=== PATIENT | male | born 2000 | race Caucasian/White ===

== ENCOUNTER 2022-09-20 03:14 | Inpatient (IN) | payer OTHER, SELFPAY ==
[2022-09-20] VITALS (27 sets, daily range): BP systolic 102–136; BP diastolic 40–69; PULSE 68–125; RESP 10–24; TEMP 36.1–37; O2SAT 93–100; BMI 31.0; BMI 31.4
--- NOTE | 2022-09-20 03:24 | EDS_ITS ---
HPI HPI - GI History of Present Illness Chief Complaint: Nausea/Vomiting Informant: patient and spouse/S.O. Abdominal Pain/Flank Pain Onset: Today and Yesterday Context: Gradual Onset Timing: Continuous Quality: Cramping Location: Diffuse Current Severity: Mild Maximum Severity: Mild Worsened by: Nothing Relieved by: Nothing Nausea/Vomiting/Emesis GI Symptom: Positive for Nausea and Vomiting Onset: Today and Yesterday Quality: Negative for Blood streaks, Coffee ground or Hematemesis Severity: Moderate Diarrhea/Melena/Hematochezia GI Symptom: Negative for Diarrhea, Melena or Hematochezia Associated Symptoms Associated Symptoms: Negative for Dysuria, Frequency, Hematuria or Urgency Narrative Narrative: 22-year-old male history of type 1 diabetes that was diagnosed 7 years ago. Last night around 6 PM he started having nausea vomiting abdominal cramping. No diarrhea no dysuria. Unsure of his latest blood sugar because his machine is currently not working. Denies fever. Prior similar symptoms: Yes Recent Illness/Hospitalization: No PFSH PFSH Medical History (Updated 09/20/22 @ 06:[address] Abdi Vera MD) Diabetes type I Hyperlipemia Obesity Home Medications atorvastatin 40 mg tablet 40 mg PO DAILY 09/20/22 [History Last Taken Unknown] insulin aspart U-100 100 unit/mL subcutaneous solution (Novolog U-100 Insulin aspart) 09/20/22 [History Last Taken Unknown] Allergy/AdvReac Type Severity Reaction Status Date / Time No Known Allergies Allergy Verified 09/20/22 03:18 Family History (Updated 09/20/22 @ 05:[address] Kristy Hemphill MD) Grandfather Heart disease Maternal GF Father Diabetes Hyperlipidemia Other Hypertension Surgical History (Updated 09/20/22 @ 05:[address] Kristy Hemphill MD) H/O wisdom tooth extraction History of ankle surgery Social History (Updated 09/20/22 @ 05:[address] Kristy Hemphill MD) household members: spouse Smoking Status: Never smoker alcohol intake: never substance use type: does not use ROS ROS ED ROS Narrative Nausea and vomiting care abdominal cramping. Review of Systems ROS Unobtainable: Denies due to encephalopathy Constitutional Constitutional ED: Denies chills or fever(s) ENT ENT ED: Denies ear pain Cardiovascular Cardiovascular: Denies chest pain Respiratory/Chest Respiratory/Chest: Denies cough Gastrointestinal Gastrointestinal: Reports abdominal pain, nausea and vomiting; Denies constipation, diarrhea or melena Genitourinary Genitourinary ED: Denies dysuria or hematuria Musculoskeletal Musculoskeletal: Denies arthralgias Integumentary Denies abscess Neurologic Neurologic: Denies headache(s) Psychiatric Psychiatric: Denies anxiety Endocrine Endocrinology: Denies polydipsia Hematologic/Lymphatic Hematologic/Lymphatic: Denies easy bleeding Allergic/Immunologic Allergic/Immunologic ED: Denies mouth swelling or tongue swelling EXAM Physical Exam Narrative Exam Narrative: While caring 22-year-old male. Vital signs stable afebrile. He does not look septic or toxic. He does look dehydrated. H EENT exam unremarkable he saps dry mucous members. Neck nontender no lymphadenopathy. Lungs clear to auscultation bilaterally. Heart regular rhythm rate about 110 no murmur. Abdomen soft nondistended normal bowel sounds no peritoneal signs. No localizing tenderness. No hernia or mass. No distention. Moving all 4 extremities. 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 Normal dorsi plantarflexion. No edema. Nontender. Back nontender. Neurologically he is awake and alert with no focal motor deficits. Const Vital Signs: 09/20/22 03:17 09/20/22 05:48 Temperature 97.5 F L 97 F L Temperature Source Oral Temporal Pulse Rate 108 H 125 H Respiratory Rate 18 24 H Blood Pressure 136/66 H 116/53 L Blood Pressure Mean 89 74 Pulse Ox 99 100 Oxygen Delivery Method Room Air Room Air Positive well nourished and well developed; Negative for obese, cachectic, contractures or unkempt General Appearance ED: well developed and NAD; Negative for unkempt, cachectic, contractures or pallor Nutritional Appearance: Negative for cachectic or obese HEENT Reports dry mucous membranes; Denies moist mucous membranes normocephalic and atraumatic; Negative for trauma or tenderness Mouth ED: Yes dry mucous membranes Mouth: dry mucous membranes Eyes PERRL and EOMs intact bilaterally General Eye ED: Negative for pale conjunctiva or scleral icterus Neck no lymphadenopathy, supple and no JVD General: Negative for tenderness Carotids: Negative for other Lymph Lymphatic: Negative for other Resp normal respiratory effort and clear to auscultation bilaterally Effort and Inspection: Negative for respiratory distress Auscultation: Negative for rales, rhonchi or wheezes Cardio regular rhythm, S1 normal heart sound, S2 normal heart sound and no murmurs; Negative for regular rate Rate: tachycardic Rhythm: Negative for abnormal rhythm GI non-tender, non-distended and no masses Inspection: Negative for abdominal distention Auscultation: normoactive bowel sounds Palpation: soft; Negative for tender, guarding, rigid, hepatomegaly, splenomegaly, hernia, mass, pulsatile mass or rebound tenderness present Back/Spine no CVA tenderness General Back: Negative for CVA tenderness Cervical Spine: Negative for cervical spine tenderness Thoracic Spine / Upper Back: Negative for thoracic spinal tenderness Lumbar Spine / Lower Back: Negative for lumbar spinal tenderness Extremity full ROM General Extremety ED: Negative for edema or tenderness General Extremity: Negative for edema Neuro CN's II-XII intact bilaterally and moves all extremities Sensorium / Orientation: alert, oriented to person, oriented to place and oriented to time; Negative for orientation impaired, confused, lethargic or stuporous Motor Exam: strength 5/5 throughout Psych mental status grossly normal and thought process normal Appearance: Negative for unkempt Attitude: No agitated Mood & Affect: Negative for depressed, anxious or tearful Skin no wounds General Skin Exam: Negative for jaundice or pallor Lesions: no lesions Rashes: no rashes Trauma: Negative for abrasion Nails: Negative for discolored MDM MDM MDM Narrative Medical decision making narrative: 22-year-old diabetic male with nausea and vomiting. Clinically suspect viral syndrome. He is a type I diabetic we will check screening labs. He will be treated with IV fluids times a liter IV Zofran for nausea and a p.o. fluid challenge and reassess. Repeat exam patient is doing well is received a liter normal saline. Due to his elevated white count abdominal discomfort he will obtain abdominal CT of the abdomen and pelvis with IV contrast. He does have small acetone which could be consistent with early DKA with his anion gap and blood sugar 445. He will be started on insulin drip through the DKA order set. Repeat exam patient doing well at 5:18 AM. He will be started on insulin drip. He is already had 2 L normal saline clinically is looking improved. They are taking him over for CAT scan. I will speak to the hospitalist about admission. Radiologist called me about the CAT scan concern that this could be an early appendicitis. On repeat exam the patient is tender in the right lower quadrant but is also tender no other areas of his abdomen is not significantly worse. I discussed his case with the general surgeon on-call who is currently in the OR and will be up to evaluate the patient soon as possible. Patient be started on IV Zosyn. His repeat chemistry came back with a potassium of 6.0 however his blood sugar is slowly improving at 410 and his anion gap is improving at 16. The elevated potassium may be secondary to other factors because he is already received 2+ liters of normal saline and is on insulin drip. I expect his potassium would be going down and not up. History & Record Review Discussion w/independent historian: Patient and Significant other Additional record(s) reviewed:: No prior records Lab Data Attestation: I reviewed the patient's lab results. Lab results narrative: CBC shows an elevated white count of 20,800. H&H of 15 and 48. Platelets of 330. Electrolytes show sodium 134. Gap of 19. BUN and creatinine of 23 and 1.4 consistent with dehydration. Glucose is elevated 445. Liver enzymes are unremarkable. Given his elevated blood sugar and anion gap and serum ketones will be obtained. Serum ketones were positive. CAT scan abdomen pelvis with IV contrast is concerning for possible appendicitis. There is no perforation or abscess. I did discuss this with the radiologist. General surgery Dr. Atul Brown will be consulted. Labs: Laboratory Results - last 24 hr 09/20/22 09/20/22 09/20/22 03:20 04:31 05:44 WBC 20.8 H RBC 5.35 Hgb 15.8 Hct 48.1 MCV 89.9 MCH 29.5 MCHC 32.8 RDW Std Deviation 38.2 RDW Coeff of Gautam 11.8 Plt Count 330 MPV 10.0 Immature Gran % (Auto) 0.900 Neut % (Auto) 88.6 H Lymph % (Auto) 6.6 L [place] % (Auto) 3.5 Eos % (Auto) 0.0 Baso % (Auto) 0.4 Absolute Neuts (auto) 18.5 H Absolute Lymphs (auto) 1.38 Nucleated RBC % 0 Sodium 134 L 133 L Potassium 4.7 6.0 H* Chloride 100 104 Carbon Dioxide 15.0 L 13.0 L Anion Gap 19 H 16 H BUN 23 H 23 H Creatinine 1.44 H 1.26 Estim Creat Clear Calc 86.82 99.22 Est GFR (MDRD) Af Amer 77 90 Est GFR (MDRD) Non-Af 64 75 BUN/Creatinine Ratio 16.0 18.3 Glucose 445 H 410 H Calcium 9.6 8.6 Total Bilirubin 1.20 H AST 23 ALT 30 Alkaline Phosphatase 111 Total Protein 8.1 Albumin 4.6 Globulin 3.5 Albumin/Globulin Ratio 1.3 Acetone Level SMALL H POC Glucose 415 H Radiography Diagnostic Testing: Clinical Impression(s) from Imaging Studies Abdomen/Pelvis CT 09/20/22 05:10 IMPRESSION: 1. Findings suspicious for acute appendicitis. No evidence for appendiceal rupture. 2. Fatty liver. Electronically Signed: Beau Young MD at 6:03 EDT , Rhythm Strip Rhythm Strip: Sinus Tach Rate: 109 Ectopy: None EKG Initial EKG: Attestation: I personally reviewed and interpreted this EKG as follows: Interpretation: No Acute Injury Pattern and Sinus Tachycardia Comments: Sinus tachycardia rate of 109 no acute signs of GA or ischemia. EKG was done due to DKA protocol. Prior EKG tracings: not available for review Prior: No Prior Critical Care Time Critical Care Time: Yes Critical care time (excluding procedures): 30-74 minutes, Including time spent:, Discussing w/Patient &/or Family/Research Interviewer, Discussing w/Consultants, Arranging Admission or Transfer, Performing Direct Patient Care at Bedside and - (31 min) Discharge Plan Dx/Rx/DC Orders Clinical Impression: Acute dehydration, DKA (diabetic ketoacidosis), Leukocytosis, Nausea & vomiting, Abdominal pain, Appendicitis Disposition Disposition: Acute Care [facility]
[2022-09-20] MEDS: 0.9% Normal Saline 1,000 ML 1000 ML IV (03:25)
[2022-09-20 03:33] LABS: Absolute Lymphocyte Count 1.38 X10^3/uL (0.83-4.51); Absolute Neutrophil Count 18.5 X10^3/uL (2.0-7.7); Basophil# 0.08 X10^3/uL; Basophil% 0.4 % (0-1); Hematocrit 48.1 % (40-54); Hemoglobin 15.8 g/dL (13.0-16.5); Lymphocyte # 1.38 X10^3/ul (0.83-4.51); Lymphocyte % 6.6 % (19-41); Mean Corp Hgb Conc 32.8 g/dL (32-36); Mean Corpuscular Hgb 29.5 pg (27.0-32.0); Mean Corpuscular Volume 89.9 fL (80-94); Monocyte# 0.73 X10^3/uL; Monocyte% 3.5 % (0-10); NRBC Flagged by Analyzer 0 % (0-5); Neutrophil # 18.46 X10^3/uL (2.7-7.7); Neutrophil % 88.6 % (47-70); Platelet Count 330 K/mm3 (150-450); RBC Distribution Width CV 11.8 % (11.6-14.6); RBC Distribution Width SD 38.2 fl (35.1-43.9); Red Blood Count 5.35 M/mm3 (4.6-6.2); White Blood Count 20.8 K/mm3 (4.4-11.0)
[2022-09-20] MEDS: Ondansetron 4 MG/2 ML Vial IV ×3 (03:34→18:05)
[2022-09-20 04:13] LABS: ALB/GLOB Ratio 1.3 RATIO (0.9-2.4); AST(SGOT) 23 U/L (15-37); Alanine Aminotransfer ALT/SGPT 30 U/L (16-61); Albumin, Serum 4.6 g/dL (3.2-5.0); Alkaline Phosphatase 111 U/L (45-117); Anion Gap 19 (5-15); BUN 23 mg/dL (7-18); Calcium,Total 9.6 mg/dL (8.5-10.1); Chloride 100 mmol/L (98-107); Creatinine, Serum 1.44 mg/dL (0.70-1.30); EST Glomerular Filtration Rate 64 mL/min (>60); Est Glom Filt Rate - Afr Amer 77 mL/min (>60); Estimated Creatinine Clearance 86.82 ml/min; Globulin 3.5 g/dL (2.2-4.2); Glucose 445 mg/dL (74-106); Potassium 4.7 mmol/L (3.5-5.1); Protein, Total 8.1 g/dL (6.4-8.2); Sodium Level 134 mmol/L (136-145)
[2022-09-20] MEDS: Ketorolac 30 MG/ML Syringe IV (04:39)
[2022-09-20] MEDS: 0.9% Normal Saline 1,000 ML 999 ML IV ×2 (04:39→05:57)
--- NOTE | 2022-09-20 05:10 | CT_ITS ---
We are attempting to reach an attending provider to discuss findings. An addendum with communication details will be sent when the communication is complete. EXAM: CT ABDOMEN AND PELVIS WITH INTRAVENOUS CONTRAST CLINICAL INDICATION: abd pain abd pain TECHNIQUE: Helically acquired images were obtained of the abdomen and pelvis with intravenous contrast. This CT exam was performed using one or more of the following dose reduction techniques: automated exposure control, adjustment of the mA and/or kV according to patient size, and/or use of iterative reconstruction technique. CONTRAST: IV 100mL Isovue-370 RADIATION DOSE: CTDIvol = 12.49 mGy, DLP = 1044.81 mGy-cm COMPARISON: No relevant prior studies available. FINDINGS: LOWER THORAX: Unremarkable. Lung bases are clear. No cardiomegaly. No significant pericardial effusion. ABDOMEN: LIVER: There is decreased attenuation of liver consistent with fatty infiltration. GALLBLADDER AND BILE DUCTS: Unremarkable. No calcified gallstones. No gallbladder distention or wall edema. No intra- or extrahepatic biliary ductal dilation. PANCREAS: Unremarkable. No focal cystic or solid mass. SPLEEN: Unremarkable. Normal size without focal cystic or solid mass. ADRENALS: Unremarkable. No nodules. KIDNEYS AND URETERS: Unremarkable. Normal renal size and position. No hydronephrosis. STOMACH AND BOWEL: Unremarkable. No stomach or bowel distention. No focal inflammatory change. PELVIS: APPENDIX: The appendix is seen on axial images 77-83. There is moderately prominent in size with diameter of 9 mm. There is an appendicolith in the tip of the appendix. There is periappendiceal fat infiltration and findings are thought to be highly suspicious for acute appendicitis. BLADDER: Unremarkable. REPRODUCTIVE: Unremarkable as visualized. No mass. ABDOMEN and PELVIS: INTRAPERITONEAL SPACE: Unremarkable. No ascites or other fluid collection. No free air. BONES/JOINTS: There are multilevel degenerative changes in the lumbar spine. No suspicious lytic or blastic abnormality. SOFT TISSUES: Unremarkable. No discrete abdominal or pelvic wall hernia. VASCULATURE: Unremarkable. Abdominal aorta is non-dilated. LYMPH NODES: Unremarkable. No enlarged lymph nodes. CT/Abdomen/Pelvis W IV Cont ONLY IMPRESSION: 1. Findings suspicious for acute appendicitis. No evidence for appendiceal rupture. 2. Fatty liver. Electronically Signed: Beau Young MD at 6:03 EDT ,
--- NOTE | 2022-09-20 05:12 | EKG12_ITS ---
Test Reason : NAUSEA Blood Pressure : / mmHG Vent. Rate : 109 BPM Atrial Rate : 109 BPM P-R Int : 150 ms QRS Dur : 098 ms QT Int : 364 ms P-R-T Axes : 068 097 054 degrees QTc Int : 490 ms Sinus tachycardia Rightward axis Borderline ECG Confirmed by VICENTE OROZCO, LIANE ([id number]), senior technical editor HARI KANG ([id number]) on 09/20/2022 10:37:58 AM Referred By: Confirmed By:LIANE ZHANG MD
--- NOTE | 2022-09-20 05:45 | HP.PCM.HOS_ITS ---
HPI - General General Date of Admission: 09/20/22 Date of Service: 09/20/22 Chief Complaint: Abdominal cramping, N/V HPI Narrative The patient is a 22 y/o M w/ PMHx: Obesity, HLD, IDDM with insulin pump following with an registered radiographer at [place] who presents to the [facility] ED on 09/20/22 with history of onset nausea and emesis with diffuse associated abdominal cramping starting the day prior at approximately 6 PM with unclear blood sugars as patient reports his machine at home is not been working with no associated fevers or chills but ongoing persistent symptoms prompting eventual ED evaluation. 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 His is present in the emergency room and she denies being ill as of yet. Patient does state he vomited nearly 12 times prior to presentation. He does note that his muscles are sore following all his bouts of emesis. Work-up in the ED included T97.5, heart rate 108, BP 136/66, respiratory rate 18, 99% on room air, CBC with WBC 20.8, hemoglobin 15.8, platelet 330 with left shift, CMP with sodium 134,, dioxide 15, anion gap 15, BUN/creatinine 23/1.44, glucose 445, T. bili 1.20 otherwise hepatic profile unremarkable, acetone small. In the ED patient ministered normal saline 2 L bolus as well as Zofran 4 mg IV x1 and Toradol [address] A/P with IV contrast ordered per ED physician and pending upon re quested evaluation of patient for admission. [facility] Medical History (Updated 09/20/22 @ 05:[address] Kristy Hemphill MD) Diabetes type I Hyperlipemia Obesity Home Medications atorvastatin 40 mg tablet 40 mg PO DAILY 09/20/22 [History Last Taken Unknown] insulin aspart U-100 100 unit/mL subcutaneous solution (Novolog U-100 Insulin aspart) 09/20/22 [History Last Taken Unknown] Allergy/AdvReac Type Severity Reaction Status Date / Time No Known Allergies Allergy Verified 09/20/22 03:18 Family History (Updated 09/20/22 @ 05:[address] Kristy Hemphill MD) Grandfather Heart disease Maternal GF Father Diabetes Hyperlipidemia Other Hypertension Surgical History (Updated 06/29/23 @ 05:[address] Kristy Hemphill MD) H/O wisdom tooth extraction History of ankle surgery Social History (Updated 09/20/22 @ 05:[address] Kristy Hemphill MD) household members: spouse Smoking Status: Never smoker alcohol intake: never substance use type: does not use ROS ROS Narrative Admission Review of Systems: CONSTITUTIONAL: No weight loss, fever, chills, + weakness or fatigue. HEENT: Eyes: No visual loss, blurred vision, double vision or yellow sclerae. Ears, Nose, Throat: No hearing loss, sneezing, congestion, runny nose or sore throat. SKIN: No rash or itching, lesions, wounds. CARDIOVASCULAR: No chest pain, chest pressure or chest discomfort, palpitations, edema, orthopnea, syncopal events. RESPIRATORY: No shortness of breath, cough or sputum, wheezing, hemoptysis. GASTROINTESTINAL: + anorexia, nausea, vomiting, abdominal cramping, No diarrhea, melena, BRBPR. GENITOURINARY: No dysuria, frequency, urgency or retention. NEUROLOGICAL: No headache, dizziness, syncope, paralysis, ataxia, numbness or tingling in the extremities, focal weakness, change in bowel or bladder control, seizure. MUSCULOSKELETAL: + muscle, back pain, joint pain or stiffness. HEMATOLOGIC: No anemia, bleeding or bruising. LYMPHATICS: No enlarged nodes. No history of splenectomy. PSYCHIATRIC: No history of depression or anxiety. ENDOCRINOLOGIC: No reports of sweating, cold or heat intolerance. No polyuria or polydipsia. ALLERGIES: No history of asthma, hives, eczema or rhinitis. Vital Signs Vital Signs Vital Signs: 09/20/22 03:17 Temperature 97.5 F L Temperature Source Oral Pulse Rate 108 H Respiratory Rate 18 Blood Pressure 136/66 H Blood Pressure Mean 89 Pulse Ox 99 Oxygen Delivery Method Room Air Weight Weight: 229 lb 0.964 oz Body Mass Index (BMI) 31.0 Physical Exam Narrative Physical Examination: General: Awake, alert, oriented x 3 and cooperative, laying in the ED bed, fatigued, mildly ill-appearing, flushed. Skin: Flushed color, normal turgor, no icterus, no cyanosis. HEENT: AT/NC, EOMI, PERRLA, dry MM, no carotid bruits or JVD noted. Lungs: Mildly diminished, greater bases, proper effort, no rales, ronchi or wheezing. Heart: Mildly tachycardic with regular rhythm; no gallop, rub audible. Abdomen: Soft, NTTP, no rebound or guarding, ND, mildly hyperactive BS, no HSM. Extremities: No cyanosis, clubbing, or edema. Neurological: Patient awake, alert, oriented as noted, cognitive function intact; pupils equally reactive to light and accommodation, cranial nerves II- XII grossly normal, moving all 4 extremities, no focal deficits, strength mildly to moderately global decrease secondary to acute presentation. Psychiatric: Affect appears fatigued, ill-appearing, no acute evidence of depressive or anxiety feelings. Results Lab / Micro Data 09/20/22 03:20 09/20/22 03:20 Labs: Laboratory Results - last 24 hr 09/20/22 03:20: WBC 20.8 H, RBC 5.35, Hgb 15.8, Hct 48.1, MCV 89.9, MCH 29.5, MCHC 32.8, RDW Std Deviation 38.2, RDW Coeff of Gautam 11.8, Plt Count 330, MPV 10.0, Immature Gran % (Auto) 0.900, Neut % (Auto) 88.6 H, Lymph % (Auto) 6.6 L, [place] % (Auto) 3.5, Eos % (Auto) 0.0, Baso % (Auto) 0.4, Absolute Neuts (auto) 18.5 H, Absolute Lymphs (auto) 1.38, Nucleated RBC % 0, Sodium 134 L, Potassium 4.7, Chloride 100, Carbon Dioxide 15.0 L, Anion Gap 19 H, BUN 23 H, Creatinine 1.44 H, Estim Creat Clear Calc 86.82, Est GFR (MDRD) Af Amer 77, Est GFR (MDRD) Non-Af 64, BUN/Creatinine Ratio 16.0, Glucose 445 H, Calcium 9.6, Total B ilirubin 1.20 H, AST 23, ALT 30, Alkaline Phosphatase 111, Total Protein 8.1, Albumin 4.6, Globulin 3.5, Albumin/Globulin Ratio 1.3 09/20/22 04:31: Acetone Level SMALL H Assessment & Plan Assessment/Plan (1) DKA (diabetic ketoacidosis): PLAN: Plan The patient is a 22 y/o M w/ PMHx: Obesity, HLD, IDDM who presents to the [facility] ED on 09/20/22 with history of onset nausea and emesis with diffuse associated abdominal cramping starting the day prior at approximately 6 PM with unclear blood sugars as patient reports his machine at home is not been working with no associated fevers or chills but ongoing persistent symptoms prompting eventual ED evaluation. #1. DKA w/ Diabetes mellitus type I: Patient started on an insulin drip in the ED and as noted CT A/P ordered per ED physician and pending upon requested evaluation of patient. Will admit to ICU, continue on insulin drip, check serial K+, glucose w/ IVF changes pending these levels, serial chemistry, obtain mag, phos daily w/ repletion as needed, transition to home SC regimen when gap closed w/ overlap on drip, nutrition consultation, hemoglobin A1c requested. #2. Leukocytosis, unclear etiology, possibly reactive, possibly acute gastroenteritis given intractable nausea and emesis: Admission CBC with WC 20.8 with left shift however intractable recent nausea and emesis with likely dehydration component, continue to aggressively hydrate and treat #1, awaiting CT A/P initiated per ED physician, repeat CBC in AM. #3. Possible Acute kidney injury versus possible chronic kidney disease unclear stage: Secondary to acute presentation #1 with intractable nausea and emesis with GI losses. Admission BUN/Cr 23/1.44, prior baseline creatinine unknown, will hydrate, hold nephrotoxic medications and repeat chemistry in AM. #4. Hyperlipidemia: We will continue patient home statin therapy. #5. Obesity: Weight loss and lifestyle changes encouraged. #6. DVT prophylaxis: Lovenox. #7. CODE STATUS: Full code. Admission Evaluation Time spent evaluating chart, patient history, patient evaluation, care planning and discussion with specialists: 55 minutes. Charges/Coding Visit Charges Inpatient E&M: 72483 Init Hosp L2
[2022-09-20 06:04] LABS: Bedside Glucose 415 mg/dL (74-106)
[2022-09-20 06:09] LABS: Anion Gap 16 (5-15); BUN 23 mg/dL (7-18); BUN/Creat Ratio 18.3 RATIO (10-20); Calcium,Total 8.6 mg/dL (8.5-10.1); Chloride 104 mmol/L (98-107); Creatinine, Serum 1.26 mg/dL (0.70-1.30); EST Glomerular Filtration Rate 75 mL/min (>60); Est Glom Filt Rate - Afr Amer 90 mL/min (>60); Estimated Creatinine Clearance 99.22 ml/min; Glucose 410 mg/dL (74-106); Sodium Level 133 mmol/L (136-145)
[2022-09-20] MEDS: morphine 8 MG/ML Syringe 6 MG IV (06:19)
[2022-09-20 06:23] LABS: Phosphorus 4.9 mg/dL (2.5-4.9)
[2022-09-20 07:21] LABS: Bedside Glucose 338 mg/dL (74-106)
[2022-09-20 07:40] LABS: Anion Gap 16 (5-15); BUN 21 mg/dL (7-18); BUN/Creat Ratio 18.4 RATIO (10-20); Calcium,Total 8.4 mg/dL (8.5-10.1); Chloride 108 mmol/L (98-107); Creatinine, Serum 1.14 mg/dL (0.70-1.30); EST Glomerular Filtration Rate 84 mL/min (>60); Est Glom Filt Rate - Afr Amer 101 mL/min (>60); Estimated Creatinine Clearance 109.67 ml/min; Glucose 336 mg/dL (74-106); Potassium 4.7 mmol/L (3.5-5.1); Sodium Level 136 mmol/L (136-145)
[2022-09-20] MEDS: 0.9% Normal Saline 1,000 ML 150 ML IV (08:19)
--- NOTE | 2022-09-20 08:27 | HP.PCM_ITS ---
HPI - General General Date of Admission: 09/20/22 Chief Complaint: Abdominal cramping, N/V HPI Narrative JAMARI RIVAS, is a 22 M who presents [facility] Medical History Diabetes type I Hyperlipemia Obesity Home Medications atorvastatin 40 mg tablet 40 mg PO DAILY 09/20/22 [History Last Taken Unknown] insulin aspart U-100 100 unit/mL subcutaneous solution (Novolog U-100 Insulin aspart) 09/20/22 [History Last Taken Unknown] Allergy/AdvReac Type Severity Reaction Status Date / Time No Known Allergies Allergy Verified 09/20/22 03:18 Family History (Updated 09/20/22 @ 05:[address] Kristy Hemphill MD) Grandfather Heart disease Maternal GF Father Diabetes Hyperlipidemia Other Hypertension Surgical History H/O wisdom tooth extraction History of ankle surgery Social History (Updated 09/20/22 @ 05:[address] Kristy Hemphill MD) household members: spouse Smoking Status: Never smoker alcohol intake: never substance use type: does not use Vital Signs Vital Signs Vital Signs: 09/20/22 03:17 09/20/22 05:48 09/20/22 07:00 Temperature 97.5 F L 97 F L 98.6 F Temperature Source Oral Temporal Oral Pulse Rate 108 H 125 H 116 H Respiratory Rate 18 24 H 18 Blood Pressure 136/66 H 116/53 L 123/69 H Blood Pressure Mean 89 74 87 Pulse Ox 99 100 99 Oxygen Delivery Method Room Air Room Air Room Air 09/20/22 07:15 Temperature Temperature Source Pulse Rate Respiratory Rate Blood Pressure Blood Pressure Mean Pulse Ox 93 Oxygen Delivery Method Room Air Weight Weight: 231 lb 7.766 oz Body Mass Index (BMI) 31.4 Results Lab / Micro Data 09/20/22 03:20 09/20/22 07:15 Labs: Laboratory Results - last 24 hr 09/20/22 03:20: WBC 20.8 H, RBC 5.35, Hgb 15.8, Hct 48.1, MCV 89.9, MCH 29.5, MCHC 32.8, RDW Std Deviation 38.2, RDW Coeff of Gautam 11.8, Plt Count 330, MPV 1 0.0, Immature Gran % (Auto) 0.900, Neut % (Auto) 88.6 H, Lymph % (Auto) 6.6 L, [place] % (Auto) 3.5, Eos % (Auto) 0.0, Baso % (Auto) 0.4, Absolute Neuts (auto) 18.5 H, Absolute Lymphs (auto) 1.38, Nucleated RBC % 0, Sodium 134 L, Potassium 4.7, Chloride 100, Carbon Dioxide 15.0 L, Anion Gap 19 H, BUN 23 H, Creatinine 1.44 H, Estim Creat Clear Calc 86.82, Est GFR (MDRD) Af Amer 77, Est GFR (MDRD) Non-Af 64, BUN/Creatinine Ratio 16.0, Glucose 445 H, Calcium 9.6, Total Bilirubin 1.20 H, AST 23, ALT 30, Alkaline Phosphatase 111, Total Protein 8.1, Albumin 4.6, Globulin 3.5, Albumin/Globulin Ratio 1.3 09/20/22 04:31: Acetone Level SMALL H 09/20/22 05:44: Sodium 133 L, Potassium 6.0 H*, Chloride 104, Carbon Dioxide 13.0 L, Anion Gap 16 H, BUN 23 H, Creatinine 1.26, Estim Creat Clear Calc 99.22, Est GFR (MDRD) Af Amer 90, Est GFR (MDRD) Non-Af 75, BUN/Creatinine Ratio 18.3, Glucose 410 H, Calcium 8.6, Phosphorus 4.9, Magnesium 2.0, POC Glucose 415 H 09/20/22 06:55: POC Glucose 338 H 09/20/22 07:15: Sodium 136, Potassium 4.7, Chloride 108 H, Carbon Dioxide 12.0 L , Anion Gap 16 H, BUN 21 H, Creatinine 1.14, Estim Creat Clear Calc 109.67, Est GFR (MDRD) Af Amer 101, Est GFR (MDRD) Non-Af 84, BUN/Creatinine Ratio 18.4, Glucose 336 H, Calcium 8.4 L Rhythm Strip Rhythm Strip: Sinus Tach Rate: 109 Ectopy: None Radiology Impression Abdomen/Pelvis CT 09/20/22 05:10 IMPRESSION: 1. Findings suspicious for acute appendicitis. No evidence for appendiceal rupture. 2. Fatty liver. Electronically Signed: Beau Young MD at 6:03 EDT , ADDENDUM: 09/20/22 0612 IMPRESSION: 1. Findings suspicious for acute appendicitis. No evidence for appendiceal rupture. 2. Fatty liver. N.B. : The above Results were Read Back by Beau Young MD to Abdi Vera MD, and understanding confirmed on 09/20/2022 06:05:33 (ET). Electronically Signed: Beau Young MD at 6:03 EDT , ADDENDUM: 09/20/2213 IMPRESSION: undefined
[2022-09-20 09:10] LABS: Bedside Glucose 288 mg/dL (74-106)
[2022-09-20 10:07] LABS: Bedside Glucose 254 mg/dL (74-106)
--- NOTE | 2022-09-20 10:38 | EX.PCM.CON.S ---
Assessment & Plan Assessment/Plan (1) Acute appendicitis: PLAN: This is a 22-year-old male with history of type 1 diabetes currently in diabetic ketoacidosis who was diagnosed with acute append. He accepts this recommendation and we will therefore plan to proceed to the operating room this afternoon to remove his appendix. In the meantime he will be further medically optimized with closure of his ion gap and improvement of his glycemic index. Ideally his blood sugar perioperatively would be less than 180 mg/dL above care plan has been discussed with patient's primary hospitalist, Dr. Paris as well.gisele. He is currently in the ICU on protocol with insulin drip. He reports improvement in all of his symptoms with treatment started to date. Results of his CT scan and made the recommendation for laparoscopic appendectomy. He has been previously started on empiric antibiotic coverage with IV Zosyn per emergency medicine. HPI Consult Data Date of Consult: 09/20/22 HPI Narrative Reason for Consultation: Acute appendicitis HPI Narrative: JAMARI ANAYA, is a 22 M who presents [facility] with complaints of acute onset abdominal pain with associated nausea and vomiting that began at 1800 last evening. States that much of the abdominal pain has subsided with pain medication, but he experienced at least 12 bouts of vomiting overnight. He reports by the end of this sequence he was producing simply ileus emesis. He denies any prior experience of abdominal pain this character. Mr. Anaya carries a diagnosis of type 1 diabetes. He states he was first diagnosed at the age of 15 and overall remains well controlled, however, today he is profoundly hyperglycemic and appears to be in early diabetic ketoacidosis with an anion gap of 16. He is also hyperkalemic. CBC demonstrates a leukocytosis of 20.[address] imaging of the abdomen pelvis was concerning for acute appendicitis and thus occasions the consult to general surgery. [facility] Medical History (Updated 09/20/22 @ 10:[address] Atul Brown MD) Diabetes type I Hyperlipemia Obesity Home Medications atorvastatin 40 mg tablet 40 mg PO DAILY 09/20/22 [History Last Taken Unknown] insulin aspart U-100 100 unit/mL subcutaneous solution (Novolog U-100 Insulin aspart) 09/20/22 [History Last Taken Unknown] Allergy/AdvReac Type Severity Reaction Status Date / Time No Known Allergies Allergy Verified 09/20/22 03:18 Family History (Updated 09/20/22 @ 05:[address] Kristy Hemphill MD) Grandfather Heart disease Maternal GF Father Diabetes Hyperlipidemia Other Hypertension Surgical History H/O wisdom tooth extraction History of ankle surgery Social History (Updated 09/20/22 @ 05:[address] Kristy Hemphill MD) household members: spouse Smoking Status: Never smoker alcohol intake: never substance use type: does not use Physical Exam Const alert and oriented x3 Constitutional Narrative: Appears somewhat drowsy Resp normal respiratory effort GI GI Narrative: Overweight, no scars, nondistended, soft, mild tenderness to palpation over McBurney's point with deep palpation. Mildly positive psoas sign. Negative obturator negative Rovsing's Lab / Micro Data 09/20/22 03:20 09/20/22 07:15 Labs: Laboratory Results - last 24 hr 09/20/22 03:20: WBC 20.8 H, RBC 5.35, Hgb 15.8, Hct 48.1, MCV 89.9, MCH 29.5, MCHC 32.8, RDW Std Deviation 38.2, RDW Coeff of Gautam 11.8, Plt Count 330, MPV 10.0, Immature Gran % (Auto) 0.900, Neut % (Auto) 88.6 H, Lymph % (Auto) 6.6 L, [place] % (Auto) 3.5, Eos % (Auto) 0.0, Baso % (Auto) 0.4, Absolute Neuts (auto) 18.5 H, Absolute Lymphs (auto) 1.38, Nucleated RBC % 0, Sodium 134 L, Potassium 4.7, Chloride 100, Carbon Dioxide 15.0 L, Anion Gap 19 H, BUN 23 H, Creatinine 1.44 H, Estim Creat Clear Calc 86.82, Est GFR (MDRD) Af Amer 77, Est GFR (MDRD) Non-Af 64, BUN/Creatinine Ratio 16.0, Glucose 445 H, Hemoglobin A1c 11.0 H, Calcium 9.6, Total Bilirubin 1.20 H, AST 23, ALT 30, Alkaline Phosphatase 111, Total Protein 8.1, Albumin 4.6, Globulin 3.5, Albumin/Globulin Ratio 1.3 09/20/22 04:31: Acetone Level SMALL H 09/20/22 05:44: Sodium 133 L, Potassium 6.0 H*, Chloride 104, Carbon Dioxide 13.0 L, Anion Gap 16 H, BUN 23 H, Creatinine 1.26, Estim Creat Clear Calc 99.22, Est GFR (MDRD) Af Amer 90, Est GFR (MDRD) Non-Af 75, BUN/Creatinine Ratio 18.3, Glucose 410 H, Calcium 8.6, Phosphorus 4.9, Magnesium 2.0, POC Glucose 415 H 09/20/22 06:55: POC Glucose 338 H 09/20/22 07:15: Sodium 136, Potassium 4.7, Chloride 108 H, Carbon Dioxide 12.0 L, Anion Gap 16 H, BUN 21 H, Creatinine 1.14, Estim Creat Clear Calc 109.67, Est GFR (MDRD) Af Amer 101, Est GFR (MDRD) Non-Af 84, BUN/Creatinine Ratio 18.4, Glucose 336 H, Calcium 8.4 L 09/20/22 08:31: POC Glucose 288 H 09/20/22 09:36: POC Glucose 254 H Rhythm Strip Rhythm Strip: Sinus Tach Rate: 109 Ectopy: None Radiology Impression Abdomen/Pelvis CT 09/20/22 05:10 IMPRESSION: 1. Findings suspicious for acute appendicitis. No evidence for appendiceal rupture. 2. Fatty liver. Electronically Signed: Beau Young MD at 6:03 EDT Reading Location ID and State: [facility] / [place] , Service support , ADDENDUM: 09/20/2212 IMPRESSION: 1. Findings suspicious for acute appendicitis. No evidence for appendiceal rupture. 2. Fatty liver. N.B. : The above Results were Read Back by Beau Young MD to Abdi Vera MD, and understanding confirmed on 09/20/2022 06:05:33 (ET). Electronically Signed: Beau Young MD at 6:03 EDT , ADDENDUM: 09/20/22 0613 IMPRESSION: undefined Charges/Coding Visit Charges Inpatient E&M: 53833 Init Hosp L2
[2022-09-20] MEDS: Dext 5%-0.45% NS 1,000 ML 150 ML IV (10:48)
[2022-09-20 11:06] LABS: Bedside Glucose 200 mg/dL (74-106)
[2022-09-20 12:12] LABS: Bedside Glucose 222 mg/dL (74-106)
[2022-09-20 12:20] LABS: Anion Gap 12 (5-15); BUN 21 mg/dL (7-18); BUN/Creat Ratio 18.4 RATIO (10-20); Calcium,Total 8.4 mg/dL (8.5-10.1); Chloride 109 mmol/L (98-107); Creatinine, Serum 1.14 mg/dL (0.70-1.30); EST Glomerular Filtration Rate 84 mL/min (>60); Est Glom Filt Rate - Afr Amer 101 mL/min (>60); Estimated Creatinine Clearance 109.67 ml/min; Glucose 228 mg/dL (74-106); Potassium 4.7 mmol/L (3.5-5.1); Sodium Level 139 mmol/L (136-145)
[2022-09-20 13:24] LABS: Bedside Glucose 249 mg/dL (74-106)
[2022-09-20] MEDS: KCL 20MEQ in D5.45NS 20 MEQ/1,000 ML IV.SOLN. 150 MEQ IV ×2 (13:27→20:08)
--- NOTE | 2022-09-20 13:30 | CASEMGMT ---
RN CM Face to Face with patient for initial transition planning/care coordination assessment. RN CM introduced self and role at [facility]. Patient lying in bed, alert and oriented, at bedside. Patient willing to participate in assessment and is able to answer all questions appropriately. Care providers, pharmacy, and demographics verified. Patient wishes to discharge home, denies need for home health at this time. Patient states he has no further needs or concerns at this time. CM to follow for discharge planning needs that may arise. PCP: No PCP, list to be provided to patient Specialists: Antoine Rodgers NP, Endocrinology Preferred Pharmacy: [facility] Insurance: MMO Prescription Benefit: yes Living Will/HPOA: none LNOK: Living Arrangements: Patient lives with in a single story home with 2 steps to enter. Patient is independent at home. Transportation: self, DME/HHC: Patient has glucometer with supplies and insulin with supplies. Patient denies previous HHC or SNF. Disposition Plan: Patient to discharge home with family support and follow-up plans in place. Charity LYNCH, RN, CM
[2022-09-20 14:03] LABS: Bedside Glucose 203 mg/dL (74-106)
--- NOTE | 2022-09-20 14:38 | NURSING ---
To surgery at this time, present, verbal report given by Saurabh ALEJANDRA to Pushpa PADILLA RN
[2022-09-20 15:04] LABS: Bedside Glucose 189 mg/dL (74-106)
[2022-09-20 16:20] LABS: Bedside Glucose 150 mg/dL (74-106)
[2022-09-20] MEDS: Bupivacaine Mpf 0.5% 30 ML VIAL INFILT (16:45)
--- NOTE | 2022-09-20 17:06 | PCM.OPRPT ---
Report of Operation Date of Procedure: 09/20/22 Pre-Operative Diagnosis: Acute appendicitis Post-Operative Diagnosis: Acute uncomplicated appendicitis (mild) Surgery/Procedure Performed:: Laparoscopic appendectomy Surgeon: tAul Brown Type of Anesthesia: General/Supplemental Anesthesiologist: Cole Mondragon Specimen's removed: Appendix Drains: None Estimated Blood Loss (mL): 5 Description of Procedure: After appropriate identification in the preoperative holding area, the patient was brought to the operating room and placed supine on the operating room table. Antibiotics had been preoperatively administered. Patient was then induced with general endotracheal anesthetic. The abdomen was prepped and draped in usual sterile fashion. Formal timeout was conducted to confirm both the patient and the procedure. A supraumbilical incision was made and carried down to the level of the fascia which was sharply opened. After opening the peritoneum in like fashion a finger sweep was made to confirm position, and a balloon trocar was placed and pneumoperitoneum was established to 15 mmHg. Patient was positioned in Trendelenburg with the left side down. 2 additional 5 mm trocars were placed in the left lower quadrant and suprapubic positions. The bladder was notably distended so this led to the suprapubic port being placed slightly higher and more tangentially than standard to avoid inadvertent bladder injury. The peritoneum was inspected and there were no signs of inadvertent injury from the Burd[place] entry. The appendix was visualized with mild inflammation and mild dilation approaching the appendiceal tip. Using blunt laparoscopic dissection, a window was made in the mesoappendix adjacent to the appendiceal base. The mesoappendix was divided with application of a laparoscopic harmonic. Then the base of the appendix was sealed and amputated with the use of an Endo NATE stapler. The appendix was placed in an Endo Catch bag. The staple line was inspected for hemostasis. Finding hemostasis to be intact, the appendix was removed from the umbilical port site. Pneumoperitoneum was then evacuated and the supraumbilical port site fascia was closed with #1 Vicryl in a [id number] fashion. The port sites were infiltrated with [number] mL local anesthetic. The skin of each port site was closed with 4-0 Monocryl in a subcuticular fashion. Steri-Strips and OpSite dressings were applied. Patient tolerated procedure well without any apparent complications. They were awoken from general anesthetic without issue and transferred to post anesthesia care unit for ongoing recovery. Grafts/Implants Used: None Complications None Admit VTE Documentation VTE Mechan Device Prophylaxis: SCD's Procedures Digestive 40xxx-49xxx: 84784 Laparoscopy appendectomy
[2022-09-20 17:29] LABS: Bedside Glucose 129 mg/dL (74-106)
[2022-09-20 17:44] LABS: Bedside Glucose 121 mg/dL (74-106)
[2022-09-20 17:54] LABS: Anion Gap 7 (5-15); BUN 21 mg/dL (7-18); BUN/Creat Ratio 17.9 RATIO (10-20); Calcium,Total 8.2 mg/dL (8.5-10.1); Chloride 113 mmol/L (98-107); Creatinine, Serum 1.17 mg/dL (0.70-1.30); EST Glomerular Filtration Rate 81 mL/min (>60); Est Glom Filt Rate - Afr Amer 98 mL/min (>60); Estimated Creatinine Clearance 106.86 ml/min; Glucose 126 mg/dL (74-106); Potassium 3.8 mmol/L (3.5-5.1); Sodium Level 141 mmol/L (136-145)
[2022-09-20] MEDS: 0.9% Saline Lock 10 ML Syringe IV ×2 (18:06→18:25)
[2022-09-20] MEDS: Insulin Glargine-YFGN 100 UNIT/ML Pen 10 UNIT SC (18:24)
[2022-09-20 18:46] LABS: Bedside Glucose 112 mg/dL (74-106)
[2022-09-20] MEDS: Famotidine 20 MG Tablet PO (22:01)
[2022-09-20 22:28] LABS: Anion Gap 13 (5-15); BUN 19 mg/dL (7-18); BUN/Creat Ratio 15.4 RATIO (10-20); Calcium,Total 8.3 mg/dL (8.5-10.1); Chloride 106 mmol/L (98-107); Creatinine, Serum 1.23 mg/dL (0.70-1.30); EST Glomerular Filtration Rate 77 mL/min (>60); Est Glom Filt Rate - Afr Amer 93 mL/min (>60); Estimated Creatinine Clearance 101.64 ml/min; Glucose 283 mg/dL (74-106); Potassium 4.4 mmol/L (3.5-5.1); Sodium Level 137 mmol/L (136-145)
[2022-09-20] MEDS: Insulin Lispro 100 UNIT/ML INSULN.PEN SC (23:23)
[2022-09-20 23:37] LABS: Bedside Glucose 302 mg/dL (74-106)
[2022-09-21] VITALS (15 sets, daily range): BP systolic 94–132; BP diastolic 42–76; PULSE 77–98; RESP 13–18; TEMP 36.3–36.6; O2SAT 94–99; BMI 31.4
--- NOTE | 2022-09-21 | APP_PTH ---
PATIENT: JAMARI RIVAS LOC: ICU U#:[id number] AGE/SX: 22/M ROOM: [place] [address] RE09/20/[address]: Dr. Reymundo Paris MD : 2000 BED: 1 DIS: 09/21/2022 SPEC #: [id number] RECD: 09/21/22 10:35 STATUS: NATASHA REQ #: [id number] DIONISIO: 09/21/22 00:[address]: Atul Brown DEPT: SURGICAL PATHOLOGY RECD BY: Casey Miller ENTERED: 09/21/22 10:35 SP TYPE: APPENDIX OTHR DR: MD Dr. Atul Aceves MD Dr. Nicholas F Kotsonis, MD No Primary Care Phys Tissues: Appendix, NOS Procedures: Surgery Specimen Level III Comments: @ Ordering doctor for SUIII edited from to @ by TOMI at 09/21/22 1425 @ Submitting doctor edited from to @ by RGOOD at 09/21/22 1425 HEADER OPERATION: Laparoscopic appendectomy PRE-OP DIAGNOSIS: Acute appendicitis TISSUE SUBMITTED: Appendix MICROSCOPIC DIAGNOSIS Appendix, appendectomy: Acute appendicitis. Two benign periappendiceal lymph nodes. ALEX:christine 09/26/2022 MICROSCOPIC DESCRIPTION Slides are reviewed. GROSS DESCRIPTION Received in fixative is one container labeled with the patient's name and designated appendix. The specimen consists of an appendix measuring 6.5 cm in length and 0.7 cm in average diameter. No gross perforations are evident. No mass lesion is identified. [employer] W[employer] sections are submitted in one cassette. / AM:christine 09/21/2022 The rest of the appendix is submitted in three more cassettes, 2-4. / SJ:christine 09/24/2022 TC:2 CPT: 28141
[2022-09-21] MEDS: 0.9% Normal Saline 1,000 ML 100 ML IV (00:24)
[2022-09-21 03:18] LABS: Absolute Lymphocyte Count 1.77 X10^3/uL (0.83-4.51); Absolute Neutrophil Count 11.8 X10^3/uL (2.0-7.7); Basophil# 0.04 X10^3/uL; Basophil% 0.3 % (0-1); Eosinophil# 0.01 X10^3/uL; Eosinophils% 0.1 % (0-5); Hematocrit 40.2 % (40-54); Hemoglobin 13.2 g/dL (13.0-16.5); Lymphocyte # 1.77 X10^3/ul (0.83-4.51); Lymphocyte % 12.2 % (19-41); Mean Corp Hgb Conc 32.8 g/dL (32-36); Mean Corpuscular Hgb 29.7 pg (27.0-32.0); Mean Corpuscular Volume 90.5 fL (80-94); Mean Platelet Vol. 9.7 fl (6.2-12.0); Monocyte% 6.2 % (0-10); NRBC Flagged by Analyzer 0 % (0-5); Neutrophil # 11.75 X10^3/uL (2.7-7.7); Neutrophil % 80.9 % (47-70); Platelet Count 267 K/mm3 (150-450); RBC Distribution Width CV 12.2 % (11.6-14.6); RBC Distribution Width SD 40.5 fl (35.1-43.9); Red Blood Count 4.44 M/mm3 (4.6-6.2); White Blood Count 14.5 K/mm3 (4.4-11.0)
[2022-09-21 03:42] LABS: ALB/GLOB Ratio 1.1 RATIO (0.9-2.4); AST(SGOT) 13 U/L (15-37); Alanine Aminotransfer ALT/SGPT 20 U/L (16-61); Albumin, Serum 3.2 g/dL (3.2-5.0); Alkaline Phosphatase 65 U/L (45-117); Anion Gap 7 (5-15); BUN 18 mg/dL (7-18); BUN/Creat Ratio 15.9 RATIO (10-20); Calcium,Total 8.1 mg/dL (8.5-10.1); Chloride 107 mmol/L (98-107); Creatinine, Serum 1.13 mg/dL (0.70-1.30); EST Glomerular Filtration Rate 85 mL/min (>60); Est Glom Filt Rate - Afr Amer 102 mL/min (>60); Estimated Creatinine Clearance 110.64 ml/min; Globulin 2.8 g/dL (2.2-4.2); Glucose 303 mg/dL (74-106); Potassium 4.2 mmol/L (3.5-5.1); Sodium Level 136 mmol/L (136-145)
[2022-09-21] MEDS: Acetaminophen 325 MG Tablet 650 MG PO (04:23)
[2022-09-21] MEDS: 0.9% Saline Lock 10 ML Syringe IV (04:23)
[2022-09-21] MEDS: Insulin Lispro 100 UNIT/ML INSULN.PEN SC ×2 (06:30→10:01)
[2022-09-21 06:38] LABS: Bedside Glucose 299 mg/dL (74-106)
[2022-09-21] MEDS: Insulin Glargine-YFGN 100 UNIT/ML Pen 10 UNIT SC (10:00)
[2022-09-21] MEDS: Famotidine 20 MG Tablet PO (10:02)
[2022-09-21] MEDS: Atorvastatin Calcium 40 MG Tablet PO (10:02)
[2022-09-21 10:21] LABS: Bedside Glucose 222 mg/dL (74-106)
--- NOTE | 2022-09-21 10:58 | PN.SURG_ITS ---
Subjective Subjective Patient seen and examined during AM rounds. He is found resting quietly in bed. He denies any significant pain aside from some mild discomfort with moving at his supraumbilical port site. Objective Data Objective Data Vital Signs: Vital Signs Temp Pulse Resp BP Pulse Ox O2 Del Method 97.6 F L 92 14 110/42 L 94 Room Air 09/21/22 05:00 09/21/22 07:00 09/21/22 07:00 09/21/22 07:00 09/21/22 07:29 09/21/22 07:29 Oxygen Delivery Method Room Air Weight: 232 lb 2.348 oz Body Mass Index (BMI) 31.4 Intake & Output: Intake and Output for Last 24 Hours 09/19/22 09/20/22 09/21/22 23:59 23:59 23:59 Intake Total 5031.54 / 5031.54 690 / 690 Balance 5031.54 / 5031.54 690 / 690 Lab / Micro Data 09/21/22 03:05 09/21/22 03:05 Labs: Laboratory Results - last 24 hr 09/20/22 10:41: POC Glucose 200 H 09/20/22 11:46: POC Glucose 222 H 09/20/22 11:55: Sodium 139, Potassium 4.7, Chloride 109 H, Carbon Dioxide 18.0 L , Anion Gap 12, BUN 21 H, Creatinine 1.14, Estim Creat Clear Calc 109.67, Est GF R (MDRD) Af Amer 101, Est GFR (MDRD) Non-Af 84, BUN/Creatinine Ratio 18.4, Glucose 228 H, Calcium 8.4 L 09/20/22 12:51: POC Glucose 249 H 09/20/22 13:44: POC Glucose 203 H 09/20/22 14:46: POC Glucose 189 H 09/20/22 15:59: POC Glucose 150 H 09/20/22 17:02: POC Glucose 129 H 09/20/22 17:20: Sodium 141, Potassium 3.8, Chloride 113 H, Carbon Dioxide 21.0, Anion Gap 7, BUN 21 H, Creatinine 1.17, Estim Creat Clear Calc 106.86, Est GFR (MDRD) Af Amer 98, Est GFR (MDRD) Non-Af 81, BUN/Creatinine Ratio 17.9, Glucose 126 H, Calcium 8.2 L 09/20/22 17:22: POC Glucose 121 H 09/20/22 18:23: POC Glucose 112 H 09/20/22 22:00: Sodium 137, Potassium 4.4, Chloride 106, Carbon Dioxide 18.0 L, Anion Gap 13, BUN 19 H, Creatinine 1.23, Estim Creat Clear Calc 101.64, Est GFR (MDRD) Af Amer 93, Est GFR (MDRD) Non-Af 77, BUN/Creatinine Ratio 15.4, Glucose 283 H, Calcium 8.3 L 09/20/22 23:20: POC Glucose 302 H 09/21/22 03:05: WBC 14.5 H, RBC 4.44 L, Hgb 13.2, Hct 40.2, MCV 90.5, MCH 29.7, MCHC 32.8, RDW Std Deviation 40.5, RDW Coeff of Gautam 12.2, Plt Count 267, MPV 9.7, Immature Gran % (Auto) 0.300, Neut % (Auto) 80.9 H, Lymph % (Auto) 12.2 L, [place] % (Auto) 6.2, Eos % (Auto) 0.1, Baso % (Auto) 0.3, Absolute Neuts (auto) 11.8 H, Absolute Lymphs (auto) 1.77, Nucleated RBC % 0, Sodium 136 09/21/22 03:05: Sodium Cancelled, Potassium 4.2 09/21/22 03:05: Potassium Cancelled, Chloride 107 09/21/22 03:05: Chloride Cancelled, Carbon Dioxide 22.0 09/21/22 03:05: Carbon Dioxide Cancelled, Anion Gap 7 09/21/22 03:05: Anion Gap Cancelled, BUN 18 09/21/22 03:05: BUN Cancelled, Creatinine 1.13 09/21/22 03:05: Creatinine Cancelled, Estim Creat Clear Calc 110.64 09/21/22 03:05: Estim Creat Clear Calc Cancelled, Est GFR (MDRD) Af Amer 102 09/21/22 03:05: Est GFR (MDRD) Af Amer Cancelled, Est GFR (MDRD) Non-Af 85 09/21/22 03:05: Est GFR (MDRD) Non-Af Cancelled, BUN/Creatinine Ratio 15.9 09/21/22 03:05: BUN/Creatinine Ratio Cancelled, Glucose 303 H 09/21/22 03:05: Glucose Cancelled, Calcium 8.1 L 09/21/22 03:05: Calcium Cancelled, Total Bilirubin 0.90, AST 13 L, ALT 20, Alkaline Phosphatase 65, Total Protein 6.0 L, Albumin 3.2, Globulin 2.8, Albumin/Globulin Ratio 1.1 09/21/22 06:20: POC Glucose 299 H 09/21/22 10:00: POC Glucose 222 H Rhythm Strip Rhythm Strip: Sinus Tach Rate: 109 Ectopy: None Physical Exam Const oriented x3 and no apparent distress Resp normal respiratory effort GI GI Narrative: Mildly distended, operative dressing still in place with minimal serosanguineous strikethrough. Appropriately tender to palpation about port sites Assessment & Plan Assessment/Plan (1) Acute appendicitis: PLAN: Postoperative day 1 from laparoscopic appendectomy. Patient appears to be doing as expected. Remains in the ICU on the account of his diabetic ketoacidosis. However, his anion gap remains closed. I have discussed with hospitalist service advancing him to an unrestricted diet and given the go ahead for discharge from a surgical standpoint. Postoperative wound care instructions were reviewed with patient and I have asked him to follow-up with me in 2 weeks to assess his healing. Charges/Coding Visit Charges Inpatient E&M: 11941 Subs Hosp L2
--- NOTE | 2022-09-21 13:02 | DCINST_ITS ---
Discharge Instructions Diet Discharge Diet: Carb Control Diet Activity Discharge Activity: Return to Normal Activity and May Shower Lifting Restrictions: 15 pounds for 4 weeks Dressing / Incision Call your doctor if your incision/area has: Continuous Slow Oozing and Increased Redness Call your doctor if you observe: Fever of 101 or Higher, Shortness of breath, Dizziness, Fainting spells, Swelling in the ankles, Chest pain and Increased palpitations (irregular heartbeat) Follow Up Care Test Results: Test results from this visit will be discussed in further detail at your follow- up appointment, if applicable. Discharge Plan Admission Admit Date/Time: 09/20/22 05:45 Attending Provider: Reymundo Paris Primary Care Provider: Care Physician,No Primary Consulting Providers: Kristy Hemphill; Atul Brown Discharge Orders/Prescriptions Prescriptions: New amoxicillin-pot clavulanate 875-125 mg tablet 1 tab PO BID Qty: 10 0RF Continued atorvastatin 40 mg tablet 40 mg PO DAILY insulin aspart U-100 [Novolog U-100 Insulin aspart] 100 unit/mL solution Referrals / Follow Up: Atul Brown MD [Med Staff - Active Staff] - Within 2 Weeks Care Physician,No Primary [Primary Care Provider] - Disposition Disposition (needs filled in before D/C Order can be placed): Home, Self Care
[2022-09-21 13:04] LABS: Bedside Glucose 364 mg/dL (74-106)
[2022-09-21 14:19] LABS: Bedside Glucose 321 mg/dL (74-106)
--- NOTE | 2022-09-21 15:44 | PCM.DC.SUM ---
Providers Date of Admission: 09/20/22 Primary Care Physician: No Primary Care Phys Consultations 09/20/22 07:48 Consult: General Surgery Routine Consulting Provider: Atul Brown Reason for Consult: ? Acute appendicitis EMERGENT Consult: No MD Notified: Yes Date Notified: 09/20/22 Time Notified: 06:39 Method of Notification: ED Physician Initiated Reason For Visit: DKA,ACUTE VIRAL GASTROENTERITIS Diagnosis Discharge Diagnosis (1) Acute appendicitis: Status: Acute Code(s): K35.80 - Unspecified acute appendicitis Medications at Discharge Home Medications atorvastatin 40 mg tablet 40 mg PO DAILY 09/20/22 insulin aspart U-100 100 unit/mL subcutaneous solution (Novolog U-100 Insulin aspart) 09/20/22 amoxicillin 875 mg-potassium clavulanate 125 mg tablet 1 tab PO BID #10 tabs 09/21/22 Hospital Course Operations appendectomy Procedures None Summary of Care Provided Minutes Spent on Discharge: 35 Hospital Course: Per HPI: The patient is a 22 y/o M w/ PMHx: Obesity, HLD, IDDM with insulin pump 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 His is present in the emergency room and she denies being ill as of yet. Patient does state he vomited nearly 12 times prior to presentation. He does note that his muscles are sore following all his bouts of emesis. Work-up in the ED included T97.5, heart rate 108, BP 136/66, respiratory rate 18, 99% on room air, CBC with WBC 20.8, hemoglobin 15.8, platelet 330 with left shift, CMP with sodium 134,, dioxide 15, anion gap 15, BUN/creatinine 23/1.44, glucose 445, T. bili 1.20 otherwise hepatic profile unremarkable, acetone small. In the ED patient ministered normal saline 2 L bolus as well as Zofran 4 mg IV x1 and Toradol [address] A/P with IV contrast ordered per ED physician and pending upon requested evaluation of patient for admission. Hospital course: 1. DKA in type 1 diabetes?22-year-old male who says that his blood sugars have generally been controlled with a recent A1c of 11 presents to the hospital with nausea and vomiting as well as abdominal cramping. In the ER he had a CT scan of his abdomen which demonstrated a mild appendicitis. He was admitted for the DKA protocol and his blood sugars have improved and he has been out of detail with his gap closed for almost 24 hours at this point. He was tolerating a regular diet after his appendectomy and from surgery's perspective they felt that he could go home. I discussed with him the possibility for discharge today and he is has been asking to go home, he states that he feels fine. He expressed understanding of the risk and benefits of discharge home and would like to go home today. I discussed with him that his blood sugar was a little bit elevated however he states that this not too elevated for his baseline. He did have his insulin pump attached prior to discharge and it was working properly he had been given long-acting insulin this morning on top of mealtime coverage. I discussed with him the need to follow diabetic diet and to follow-up with his PCP in 3 to 5 days after discharge. 2. Appendicitis?status post appendectomy on 09/20/2022 per surgery was a mild appendicitis, will make him a 15 pound weight limit for lifting and have him follow-up with general surgery in 2 weeks. We will continue with Augmentin for another 5 days on discharge it is conceivable that the appendicitis is what threw him into DKA. 3. Hyperlipidemia?we will continue with his home statin Physical Exam Narrative General: Alert, Oriented x3, Cooperative, No apparent distress HEENT: Atraumatic, PERRLA, EOMI, Normocephalic Oral: Moist Mucosa Neck: Supple, No JVD Lungs: Clear to auscultation, Normal air movement, No rhonchi, No wheeze, No rales Cardiovascular: Regular rate, Regular Rhythm, Normal S1, Normal S2, No murmurs Abdomen: Soft, tender around incisions, Non-Distended, No Hepato-splenomegaly Extremities: No edema, Capillary Refill Less than 3 Seconds Skin: No rashes, No breakdown Musculoskeletal: No Tenderness to Palpation of Joints or Extremities Neurological: Cranial nerves II-XII grossly intact, Motor Exam 5/5 strength throughout, Sensory exam intact to light touch and pain Psych/Mental Status: Normal Affect, Appropriate Weight / BMI Weight Weight: 232 lb 2.348 oz Body Mass Index (BMI) 31.4 ABG / Lab / Microbiology Data 09/21/22 03:05 09/21/22 03:05 Laboratory: Laboratory Results - last 24 hr 09/20/22 15:59: POC Glucose 150 H 09/20/22 17:02: POC Glucose 129 H 09/20/22 17:20: Sodium 141, Potassium 3.8, Chloride 113 H, Carbon Dioxide 21.0, Anion Gap 7, BUN 21 H, Creatinine 1.17, Estim Creat Clear Calc 106.86, Est GFR (MDRD) Af Amer 98, Est GFR (MDRD) Non-Af 81, BUN/Creatinine Ratio 17.9, Glucose 126 H, Calcium 8.2 L 09/20/22 17:22: POC Glucose 121 H 09/20/22 18:23: POC Glucose 112 H 09/20/22 22:00: Sodium 137, Potassium 4.4, Chloride 106, Carbon Dioxide 18.0 L, Anion Gap 13, BUN 19 H, Creatinine 1.23, Estim Creat Clear Calc 101.64, Est GFR (MDRD) Af Amer 93, Est GFR (MDRD) Non-Af 77, BUN/Creatinine Ratio 15.4, Glucose 283 H, Calcium 8.3 L 09/20/22 23:20: POC Glucose 302 H 09/21/22 03:05: WBC 14.5 H, RBC 4.44 L, Hgb 13.2, Hct 40.2, MCV 90.5, MCH 29.7, MCHC 32.8, RDW Std Deviation 40.5, RDW Coeff of Gautam 12.2, Plt Count 267, MPV 9.7, Immature Gran % (Auto) 0.300, Neut % (Auto) 80.9 H, Lymph % (Auto) 12.2 L, [place] % (Auto) 6.2, Eos % (Auto) 0.1, Baso % (Auto) 0.3, Absolute Neuts (auto) 11.8 H, Absolute Lymphs (auto) 1.77, Nucleated RBC % 0, Sodium 136 09/21/22 03:05: Sodium Cancelled, Potassium 4.2 09/21/22 03:05: Potassium Cancelled, Chloride 107 09/21/22 03:05: Chloride Cancelled, Carbon Dioxide 22.0 09/21/22 03:05: Carbon Dioxide Cancelled, Anion Gap 7 09/21/22 03:05: Anion Gap Cancelled, BUN 18 09/21/22 03:05: BUN Cancelled, Creatinine 1.13 09/21/22 03:05: Creatinine Cancelled, Estim Creat Clear Calc 110.64 09/21/22 03:05: Estim Creat Clear Calc Cancelled, Est GFR (MDRD) Af Amer 102 09/21/22 03:05: Est GFR (MDRD) Af Amer Cancelled, Est GFR (MDRD) Non-Af 85 09/21/22 03:05: Est GFR (MDRD) Non-Af Cancelled, BUN/Creatinine Ratio 15.9 09/21/22 03:05: BUN/Creatinine Ratio Cancelled, Glucose 303 H 09/21/22 03:05: Glucose Cancelled, Calcium 8.1 L 09/21/22 03:05: Calcium Cancelled, Total Bilirubin 0.90, AST 13 L, ALT 20, Alkaline Phosphatase 65, Total Protein 6.0 L, Albumin 3.2, Globulin 2.8, Albumin/Globulin Ratio 1.1 09/21/22 06:20: POC Glucose 299 H 09/21/22 10:00: POC Glucose 222 H 09/21/22 12:45: POC Glucose 364 H 09/21/22 14:00: POC Glucose 321 H D/C Instructions Discharge Diet: Carb Control Diet Call your doctor if your incision/area has: Continuous Slow Oozing and Increased Redness Call your doctor if you observe: Fever of 101 or Higher, Shortness of breath, Dizziness, Fainting spells, Swelling in the ankles, Chest pain and Increased palpitations (irregular heartbeat) Meaningful Use Info Meaningful Use Diagnoses (Choose all that apply): None applicable Discharge Plan Admission Admit Date/Time: 09/20/22 05:45 Attending Provider: Reymundo Paris Primary Care Provider: Care Physician,No Primary Consulting Providers: Kristy Hemphill; Atul Brown Discharge Orders/Prescriptions Prescriptions: New amoxicillin-pot clavulanate 875-125 mg tablet 1 tab PO BID Qty: 10 0RF Continued atorvastatin 40 mg tablet 40 mg PO DAILY insulin aspart U-100 [Novolog U-100 Insulin aspart] 100 unit/mL solution Referrals / Follow Up: Atul Brown MD [Med Staff - Active Staff] - Within 2 Weeks Care Physician,No Primary [Primary Care Provider] - Disposition Disposition (needs filled in before D/C Order can be placed): Home, Self Care Charges/Coding Visit Charges Inpatient E&M: 19074 Disch Hosp >30min
== END 2022-09-21 14:21 | disposition home or self-care (01) | DRG 982 ==
LOC: ED 05:21 → ICU 06:11
PROVIDERS: Surgery; Admitting Provider Family Medicine; Emergency Provider Emergency Medicine; Visit Provider Family Medicine
PROC: 0DTJ4ZZ Resection of Appendix, Percutaneous Endoscopic Approach (ICD-10-PCS; CPT 44970; principal; 2022-09-20 14:40)
DX: E10.10 Type 1 diabetes mellitus with ketoacidosis without coma (principal); K35.80 Unspecified acute appendicitis; K76.0 Fatty (change of) liver, not elsewhere classified; E86.0 Dehydration; K52.9 Noninfective gastroenteritis and colitis, unspecified; E78.5 Hyperlipidemia, unspecified; M79.10 Myalgia, unspecified site; Z96.41 Presence of insulin pump (external) (internal); E66.9 Obesity, unspecified
CPT/HCPCS: 74177; 80048; 80053; 82009; 82962; 83036; 83735; 84100; 85025; 88304; 93005; 94762; 99285; 99406; J7030; Q9967; A4216; J2405; J7799

== ENCOUNTER → 2023-02-13 | Outpatient (CLI) | payer OTHER, SELFPAY ==
[2023-02-13 11:06] LABS: Hemoglobin A1c 9.4 % (3.8-5.6)
[2023-02-13 11:19] LABS: AST(SGOT) 12 U/L (15-37); Alanine Aminotransfer ALT/SGPT 18 U/L (16-61); Anion Gap 6 (5-15); BUN 10 mg/dL (7-18); BUN/Creat Ratio 11.8 RATIO (10-20); Calcium,Total 9.4 mg/dL (8.5-10.1); Chloride 103 mmol/L (98-107); Cholesterol 156 mg/dL (200); Creatinine, Serum 0.85 mg/dL (0.70-1.30); EST Glomerular Filtration Rate 118 mL/min (>60); Est Glom Filt Rate - Afr Amer 142 mL/min (>60); Glucose 200 mg/dL (74-106); High Density Lipoprotein 55 mg/dL; Potassium 4.3 mmol/L (3.5-5.1); Sodium Level 136 mmol/L (136-145); Triglycerides 82 mg/dL; Very Low Density Lipoprotein 16 mg/dL (5-40)
[2023-02-13 11:27] LABS: Microalbumin,Random Urine 14.9 mg/L (NO RANGE EST.)
[2023-02-14 04:07] LABS: LDL, Direct 120295 88 mg/dL (0-99)
== END | disposition home or self-care (01) ==
LOC: LAB 10:17
DX: E78.2 Mixed hyperlipidemia (principal); E10.65 Type 1 diabetes mellitus with hyperglycemia
CPT/HCPCS: 36415; 80048; 80061; 82043; 83036; 83721; 84450; 84460